=== PATIENT | male | born 1985 | race Two or more races ===

== ENCOUNTER 2021-11-21 18:53 | Emergency (ER) | payer SELFPAY ==
[~2021-11-21] VITALS: Ht 177.8 cm; Wt 82.0 kg
[2021-11-21 19:49] VITALS: BP 144/88
== END 2021-11-21 23:54 | disposition home or self-care (01) ==
LOC: EDBD 18:53 → ER 18:53
DX: F15.10 Other stimulant abuse, uncomplicated (principal); F17.210 Nicotine dependence, cigarettes, uncomplicated; F12.10 Cannabis abuse, uncomplicated